=== PATIENT | male | born 1985 | race Caucasian/White ===

== ENCOUNTER 2017-10-19 17:43 | Emergency (ER) | payer OTHER ==
[~2017-10-19] VITALS: Ht 182.9 cm; Wt 106.6 kg
[~2017-10-19 17:43] MED LIST: AMOCLA875 PO; CEPH500 PO; CETI10 PO; CYCL10 PO; Colace100 MG PO; HYDACE5 PO; HYDACE5325 PO; METPRE4DP PO; Percocet 7.5-31 EACH PO
[2017-10-19] MEDS ORDERED: Flonase 0.05% N16 GM (18:01)
== END 2017-10-19 18:10 | disposition home or self-care (01) ==
LOC: ER 17:43
DX: H92.03 Otalgia, bilateral (principal); F17.220 Nicotine dependence, chewing tobacco, uncomplicated
CPT/HCPCS: 99282

== ENCOUNTER 2018-03-19 17:46 | Emergency (ER) | payer SELFPAY ==
[~2018-03-19] VITALS: Ht 185.4 cm; Wt 106.6 kg
[~2018-03-19 17:46] MED LIST changes: +Flonase 0.05% N16 GM
== END 2018-03-19 19:39 | disposition home or self-care (01) ==
LOC: ER 17:46
DX: S61.214A Laceration without foreign body of right ring finger without damage to nail, initial encounter (principal); Z23 Encounter for immunization; Z87.891 Personal history of nicotine dependence; W23.0XXA Caught, crushed, jammed, or pinched between moving objects, initial encounter
CPT/HCPCS: 12001; 73140; 90471; 90714; 99282-25

== ENCOUNTER 2018-03-22 05:14 | Emergency (ER) | payer SELFPAY ==
[~2018-03-22] VITALS: Ht 185.4 cm; Wt 106.6 kg
== END 2018-03-22 05:35 | disposition home or self-care (01) ==
LOC: ER 05:14
DX: S61.214D Laceration without foreign body of right ring finger without damage to nail, subsequent encounter (principal); Z87.891 Personal history of nicotine dependence
CPT/HCPCS: 99282

== ENCOUNTER 2019-02-11 08:01 | Emergency (ER) | payer OTHER ==
[~2019-02-11] VITALS: Ht 185.4 cm; Wt 102.1 kg
[2019-02-11 09:26] LABS: BASOPHILS ABSOLUTE AUTO 0.02 K/mm3 (0.00-0.23); BASOPHILS PERCENT AUTO 0 % (0-2); EOSINOPHILS ABSOLUTE AUTO 0.01 K/mm3 (0.00-0.68); EOSINOPHILS PERCENT AUTO 0 % (0-6); Hematocrit 47.2 % (37.0-53.0); Hemoglobin 16.2 g/dL (13.5-17.5); IMMATURE GRAN ABSOLUTE AUTO 0.03 K/mm3 (0.00-0.10); IMMATURE GRAN PERCENT AUTO 0 % (0-1); LYMPHOCYTES ABSOLUTE AUTO 1.31 K/mm3 (0.84-5.20); LYMPHOCYTES PERCENT AUTO 14 % (21-46); MONOCYTES ABSOLUTE AUTO 0.78 K/mm3 (0.16-1.47); MONOCYTES PERCENT AUTO 8 % (4-13); Mean Corpuscular HGB 31.9 pg (26.0-34.0); Mean Corpuscular HGB Conc 34.3 g/dL (31.5-36.5); Mean Corpuscular Volume 93 fL (80-100); Mean Platelet Volume 9.6 fL (9.1-12.4); NEUTROPHILS ABSOLUTE AUTO 7.51 K/mm3 (1.96-9.15); NEUTROPHILS PERCENT AUTO 78 % (41-73); Platelet Count 163 K/mm3 (150-400); RDW Coefficient Variation 12.5 % (11.7-14.2); RDW Standard Deviation 42.8 fL (35.1-46.3); Red Blood Cell Count 5.08 M/mm3 (4.30-5.90); White Blood Cell Count 9.66 K/mm3 (4.00-11.30)
[2019-02-11 09:51] LABS: Alanine Aminotransfer (ALT/SGP 22 U/L (12-78); Albumin, Blood 3.8 g/dL (3.4-5.0); Albumin/Globulin Ratio 0.9 (0.8-1.8); Alk Phos 77 U/L (50-136); Anion Gap 5 mmol/L (6-16); Aspartate Aminotrans (AST/SGOT 17 U/L (12-37); Bilirubin, Total 0.8 mg/dL (0.1-1.0); Blood Urea Nitrogen 8 mg/dL (8-24); Bun/Creatinine Ratio 9.6 (12.0-20.0); CO2, Blood 28 mmol/L (21-32); Calcium, Blood 8.9 mg/dL (8.5-10.1); Chloride, Blood 106 mmol/L (98-108); Creatinine, Blood 0.83 mg/dL (0.60-1.20); Globulin, Blood 4.1 g/dL (2.2-4.0); Glomerular Filtration Rate >60 (60-); Glucose, Blood 87 mg/dL (70-99); Potassium, Blood 3.7 mmol/L (3.5-5.5); Sodium, Blood 139 mmol/L (136-145); Total Protein, Blood 7.9 g/dL (6.4-8.2)
[2019-02-11] MEDS ORDERED: PENVK500 PO (10:14)
== END 2019-02-11 10:29 | disposition home or self-care (01) ==
LOC: ER 08:01
PROVIDERS: Physician Assistant
DX: J02.9 Acute pharyngitis, unspecified (principal); F17.220 Nicotine dependence, chewing tobacco, uncomplicated
CPT/HCPCS: 36415; 70491; 80053; 85025; 99284-25; Q9967

== ENCOUNTER 2019-02-12 07:19 | Emergency (ER) | payer OTHER ==
[~2019-02-12] VITALS: Ht 185.4 cm; Wt 102.1 kg
[~2019-02-12 07:19] MED LIST changes: +PENVK500 PO
== END 2019-02-12 08:16 | disposition home or self-care (01) ==
LOC: ER 07:19
DX: J02.9 Acute pharyngitis, unspecified (principal)
CPT/HCPCS: 99282

== ENCOUNTER 2019-08-28 08:37 | Emergency (ER) | payer OTHER ==
[~2019-08-28] VITALS: Ht 185.4 cm; Wt 107.0 kg
[2019-08-28] MEDS ORDERED: Naprosyn500 MG PO (09:37)
== END 2019-08-28 09:43 | disposition home or self-care (01) ==
LOC: ER 08:37
DX: S20.211A Contusion of right front wall of thorax, initial encounter (principal); Y04.2XXA Assault by strike against or bumped into by another person, initial encounter; Y93.72 Activity, wrestling
CPT/HCPCS: 71101; 99283-25

== ENCOUNTER 2019-10-15 14:33 | Emergency (ER) | payer OTHER ==
[~2019-10-15] VITALS: Ht 185.4 cm; Wt 108.9 kg
[~2019-10-15 14:33] MED LIST changes: +Naprosyn500 MG PO
== END 2019-10-15 16:00 | disposition left against medical advice (07) ==
LOC: ER 14:33
DX: Z53.21 Procedure and treatment not carried out due to patient leaving prior to being seen by health care provider (principal)
CPT/HCPCS: 99282

== ENCOUNTER 2020-11-15 15:00 | Emergency (ER) | payer OTHER ==
[~2020-11-15] VITALS: Ht 185.4 cm; Wt 106.6 kg
[2020-11-15] MEDS ORDERED: ALBU90OI INH (17:33)
== END 2020-11-15 17:41 | disposition home or self-care (01) ==
LOC: ER 15:00
DX: J30.2 Other seasonal allergic rhinitis (principal); Z87.891 Personal history of nicotine dependence
CPT/HCPCS: 71046; 99283-25

== ENCOUNTER 2021-03-16 19:28 | Emergency (ER) | payer MEDICARE, OTHER ==
[~2021-03-16] VITALS: Ht 185.4 cm; Wt 106.6 kg
[~2021-03-16 19:28] MED LIST changes: +ALBU90OI INH
[2021-03-17 01:10] LABS: Calcium, Ionized (POC) 1.17 mmol/L (1.10-1.46); Chloride (POC) 96 mmol/L (98-108); Glucose (ISTAT POC) 87 mg/dL (70-99); Hemoglobin (POC) 14.6 g/dL (13.5-17.5); Potassium (POC) 3.1 mmol/L (3.5-5.5); Sodium (POC) 137 mmol/L (135-148); Total CO2 (POC) 29 mmol/L (21-32)
== END 2021-03-17 02:13 | disposition home or self-care (01) ==
LOC: ER 19:28
PROVIDERS: Student in an Organized Health Care Education/Training Program
DX: U07.1 COVID-19 (principal); F17.220 Nicotine dependence, chewing tobacco, uncomplicated; R00.0 Tachycardia, unspecified
CPT/HCPCS: 36415; 80047; 85014; 99283

== ENCOUNTER 2022-10-04 15:25 | Emergency (ER) | payer MEDICARE, OTHER ==
[~2022-10-04] VITALS: Ht 185.4 cm; Wt 104.3 kg
[~2022-10-04 15:25] MED LIST changes: +BACITO TOP; +CETI5 PO; +PRED20 PO
[2022-10-04 16:33] LABS: BASOPHILS ABSOLUTE AUTO 0.07 K/mm3 (0.00-0.23); BASOPHILS PERCENT AUTO 1 % (0-2); EOSINOPHILS ABSOLUTE AUTO 0.09 K/mm3 (0.00-0.68); EOSINOPHILS PERCENT AUTO 1 % (0-6); Hematocrit 47.4 % (37.0-53.0); IMMATURE GRAN PERCENT AUTO 1 % (0-1); LYMPHOCYTES ABSOLUTE AUTO 2.41 K/mm3 (0.84-5.20); LYMPHOCYTES PERCENT AUTO 25 % (21-46); MONOCYTES PERCENT AUTO 5 % (4-13); Mean Corpuscular HGB 32.8 pg (26.0-34.0); Mean Corpuscular HGB Conc 35.9 g/dL (31.5-36.5); Mean Corpuscular Volume 91 fL (80-100); Mean Platelet Volume 9.6 fL (9.1-12.4); NEUTROPHILS ABSOLUTE AUTO 6.46 K/mm3 (1.96-9.15); NEUTROPHILS PERCENT AUTO 67 % (41-73); Platelet Count 239 K/mm3 (150-400); RDW Coefficient Variation 12.3 % (11.7-14.2); RDW Standard Deviation 41.2 fL (35.1-46.3); Red Blood Cell Count 5.19 M/mm3 (4.30-5.90); White Blood Cell Count 9.63 K/mm3 (4.00-11.30)
[2022-10-04] MEDS ORDERED: CYCL10 PO (16:58)
[2022-10-04] MEDS ORDERED: Norco 5-325 Ta1 EACH PO (16:58)
[2022-10-04] MEDS ORDERED: IBU600 M1 PO (16:58)
[2022-10-04 17:00] LABS: Albumin, Blood 3.9 g/dL (3.4-5.0); Bilirubin, Total 0.7 mg/dL (0.1-1.0); Bun/Creatinine Ratio 13.1 (12.0-20.0); Calcium, Blood 8.8 mg/dL (8.5-10.1); Creatinine, Blood 0.76 mg/dL (0.60-1.20); Globulin, Blood 3.9 g/dL (2.2-4.0); Potassium, Blood 4.2 mmol/L (3.5-5.5); Total Protein, Blood 7.8 g/dL (6.4-8.2)
== END 2022-10-04 17:23 | disposition home or self-care (01) ==
LOC: ER 15:25
PROVIDERS: Physician Assistant
DX: M54.50 Low back pain, unspecified (principal); F17.220 Nicotine dependence, chewing tobacco, uncomplicated
CPT/HCPCS: 36415; 74176; 80053; 81000; 85025; 96374; 99284-25; J1885

== ENCOUNTER 2023-04-26 17:23 | Emergency (ER) | payer MEDICARE, OTHER ==
[~2023-04-26] VITALS: Ht 185.4 cm; Wt 106.6 kg
[~2023-04-26 17:23] MED LIST changes: +IBU600 M1 PO; +Norco 5-325 Ta1 EACH PO
[2023-04-26 23:23] LABS: BASOPHILS ABSOLUTE AUTO 0.02 K/mm3 (0.00-0.23); BASOPHILS PERCENT AUTO 0 % (0-2); EOSINOPHILS ABSOLUTE AUTO 0.02 K/mm3 (0.00-0.68); EOSINOPHILS PERCENT AUTO 0 % (0-6); Hematocrit 48.5 % (37.0-53.0); Hemoglobin 17.2 g/dL (13.5-17.5); IMMATURE GRAN ABSOLUTE AUTO 0.04 K/mm3 (0.00-0.10); IMMATURE GRAN PERCENT AUTO 0 % (0-1); LYMPHOCYTES ABSOLUTE AUTO 1.36 K/mm3 (0.84-5.20); LYMPHOCYTES PERCENT AUTO 14 % (21-46); MONOCYTES ABSOLUTE AUTO 0.57 K/mm3 (0.16-1.47); MONOCYTES PERCENT AUTO 6 % (4-13); Mean Corpuscular HGB 33.6 pg (26.0-34.0); Mean Corpuscular HGB Conc 35.5 g/dL (31.5-36.5); Mean Corpuscular Volume 95 fL (80-100); Mean Platelet Volume 9.7 fL (9.1-12.4); NEUTROPHILS ABSOLUTE AUTO 7.84 K/mm3 (1.96-9.15); NEUTROPHILS PERCENT AUTO 80 % (41-73); Platelet Count 212 K/mm3 (150-400); RDW Coefficient Variation 12.5 % (11.7-14.2); RDW Standard Deviation 43.3 fL (35.1-46.3); Red Blood Cell Count 5.12 M/mm3 (4.30-5.90); White Blood Cell Count 9.85 K/mm3 (4.00-11.30)
[2023-04-26 23:44] LABS: Albumin, Blood 4.3 g/dL (3.4-5.0); Albumin/Globulin Ratio 1.1 (0.8-1.8); Bilirubin, Total 1.3 mg/dL (0.1-1.0); Bun/Creatinine Ratio 6.1 (12.0-20.0); Calcium, Blood 8.9 mg/dL (8.5-10.1); Creatinine, Blood 0.98 mg/dL (0.60-1.20); Globulin, Blood 3.8 g/dL (2.2-4.0); Potassium, Blood 3.3 mmol/L (3.5-5.5); Total Protein, Blood 8.1 g/dL (6.4-8.2)
[2023-04-27] VITALS: BP 138/92
== END 2023-04-27 01:08 | disposition home or self-care (01) ==
LOC: ER 17:23
PROVIDERS: Emergency Medicine
DX: B34.9 Viral infection, unspecified (principal); E87.6 Hypokalemia; R42 Dizziness and giddiness; F17.220 Nicotine dependence, chewing tobacco, uncomplicated; Z20.822 Contact with and (suspected) exposure to COVID-19
CPT/HCPCS: 71046; 80053; 83880; 85025; 93005; 93010; 96360; 96361; 99285-25; A9270; J7030

== ENCOUNTER 2023-08-06 17:54 | Emergency (ER) | payer MEDICARE, OTHER ==
[~2023-08-06] VITALS: Ht 185.4 cm; Wt 106.6 kg
[2023-08-06 18:07] VITALS: BP 147/101
[2023-08-06 18:55] LABS: Influenza A, PCR NEGATIVE (NEGATIVE); Resp Syncytial Virus, PCR NEGATIVE (NEGATIVE); SARS-Cov-2 (COVID-19) PCR, MMC NEGATIVE (NEGATIVE)
[2023-08-06 19:02] LABS: Influenza B, PCR POSITIVE (NEGATIVE)
== END 2023-08-06 19:23 | disposition home or self-care (01) ==
LOC: ER 17:54
PROVIDERS: Emergency Medicine
DX: J10.1 Influenza due to other identified influenza virus with other respiratory manifestations (principal); Z20.822 Contact with and (suspected) exposure to COVID-19; Z87.891 Personal history of nicotine dependence
CPT/HCPCS: 0241U; 99283; A9270

== ENCOUNTER 2024-05-24 11:33 | Emergency (ER) | payer MEDICARE, OTHER ==
[~2024-05-24] VITALS: Ht 185.4 cm; Wt 106.6 kg
[2024-05-24 11:52] VITALS: BP 155/115
[2024-05-24] MEDS ORDERED: Lidocaine 4% 1 Patch TOP ONE (12:05)
[2024-05-24] MEDS ORDERED: Ketorolac Tromethamine 15mg Vial IM ONE (12:05)
[2024-05-24] MEDS ORDERED: Robaxin750 MG PO (12:08)
[2024-05-24] MEDS ORDERED: LIDOCAINE1 EACH TOP (12:08)
== END 2024-05-24 12:44 | disposition home or self-care (01) ==
LOC: ER 11:33
DX: M62.830 Muscle spasm of back (principal); F17.220 Nicotine dependence, chewing tobacco, uncomplicated
CPT/HCPCS: 96372; 99283-25; A9270; J1885

== ENCOUNTER 2025-05-27 12:35 | Emergency (ER) | payer MEDICARE, OTHER ==
[~2025-05-27] VITALS: Ht 185.4 cm; Wt 106.6 kg
[~2025-05-27 12:35] MED LIST changes: +LIDOCAINE1 EACH TOP; +Robaxin750 MG PO
[2025-05-27 13:06] VITALS: BP 135/95
[2025-05-27] MEDS ORDERED: Ketorolac Tromethamine 30mg Vial IM ONE (14:20)
== END 2025-05-27 14:35 | disposition home or self-care (01) ==
LOC: ER 12:35
DX: R07.89 Other chest pain (principal); R09.1 Pleurisy; Z79.899 Other long term (current) drug therapy; Z87.891 Personal history of nicotine dependence; Z59.89 Other problems related to housing and economic circumstances
CPT/HCPCS: 71046; 96372; 99284-25; J1885